=== PATIENT | female | born 1990 | race African-American/Black ===

== ENCOUNTER 2020-01-11 02:51 | Emergency (ER) | payer OTHER ==
[~2020-01-11] VITALS: Ht 167.6 cm; Wt 84.4 kg
[2020-01-11 03:28] LABS: HEMATOCRIT 34.3 % (37.0-47.0); HEMOGLOBIN 11.6 gm/dL (12.0-15.0); MCH 28.4 pg (26.0-34.0); MCHC 33.9 g/dL (28.0-37.0); MCV 83.7 fL (80.0-100.0); PLATELET COUNT 348 thou/uL (150-400); RDW 13.6 % (10.5-14.5); WBC 6.6 thou/uL (4.0-11.0)
[2020-01-11 03:29] LABS: ANION GAP 13 mmol/L (7-16); BUN 8 mg/dL (7-18); CALCIUM 8.7 mg/dL (8.5-10.1); CHLORIDE 105 mmol/L (98-107); CO2 27 mmol/L (21-32); GLUCOSE 153 mg/dL (74-106); POTASSIUM 3.1 mmol/L (3.5-5.1); SODIUM 145 mmol/L (136-145)
[2020-01-11 03:34] LABS: MAGNESIUM 1.9 mg/dL (1.8-2.4); SALICYLATE < 2.8 mg/dL (2.8-20.0)
[2020-01-11 09:23] VITALS: BP 102/56
--- NOTE | 2020-01-12 07:50 | EKG ---
[facility] [place] [address] ELECTROCARDIOGRAM REPORT Name: JOELLEN MCGREGOR Room #: DEP [facility]ALUSIA HEALTHCristian#: [id number] Admission: 01/11/20 Attend Phys: Discharge: 01/11/20 Date of : [birth year] Report #: [id number] THIS REPORT FOR: cc: GREG - Lizz family physician/PCP GREG - Lizz family physician/PCP Rickie Morris MD [facility] THIS REPORT FOR: //name// [facility] ED Test Date: 2020-01-11 Test Time: 03:28:12 Pat Name: JOELLEN MCGREGOR Department: Room: Gender: [employer] 1990 Requested By: Inocente Parsons Order Number: [id number] MD: Rickie Morris Measurements Intervals [place] Rate: 110 P: 44 NV: 147 QRS: 55 QRSD: 93 T: -32 QT: 347 QTc: 470 Interpretive Statements Sinus tachycardia Borderline repolarization abnormality No previous ECG available for comparison Electronically Signed On 01-12-2020 7:50:09 [employer] by Rickie Morris [email or web address] <ELECTRONICALLY SIGNED> By: Rickie Morris MD, FACC 01/12/20 0750 7 7 Rickie Morris MD, FAC /EPI
== END 2020-01-11 09:24 | disposition home or self-care (01) ==
LOC: ER 02:51
PROVIDERS: Emergency Medicine
DX: F10.129 Alcohol abuse with intoxication, unspecified (principal); Y90.6 Blood alcohol level of 120-199 mg/100 ml